=== PATIENT | male | born 1970 | race Caucasian/White ===

== ENCOUNTER 2019-02-23 18:18 | Inpatient (IN) | payer OTHER ==
[2019-02-23] MEDS ORDERED: SODIUM CHLORIDE 0.9% 1,000 ML IV STA (18:58)
[2019-02-23] MEDS ORDERED: ONDANSETRON 4 MG/2 ML VIAL IVP STA (18:58)
[2019-02-23] MEDS ORDERED: DILTIAZEM DRIP BOLUS FROM BAG 1 MG SOLN IV ONE (19:13)
[2019-02-23] MEDS ORDERED: DILTIAZEM 125 MG in SODIUM CHLORIDE 0.9% 100 ML IV SCH (19:15)
--- NOTE | 2019-02-23 19:16 | ED ---
Dizziness HPI - General Chief Complaint: Dizziness Stated Complaint: dizziness/weakness/poss low BP Time Seen by Provider: 02/23/19 18:27 Source: patient, RN notes reviewed, old records reviewed Mode of arrival: wheelchair Limitations: no limitations - History of Present Illness Initial Comments: This is a 48-year-old male the ER for evaluation presents today for evaluation regards to not feeling well. Patient's was feeling fine all day and became very lightheaded dizzy and she is evaluating. No recent medication changes. Patient has history of heart failure. States he feels like his heart is racing right now currently. Denies history of H of fibrillation. No current chest pain is feeling weak lightheaded and shortness of breath. No fevers no significant sick contacts MD Complaint: dizziness, lightheadedness, other (Nausea and vomiting) -: hour(s) Timing: sudden onset Description: lightheadedness, nausea, near-syncope History of Same: Yes History of Trauma: No Severity: moderate Improves With: nothing Worsens With: movement Associated Symptoms: diaphoresis, loss of appetite, weakness - Related Data Home Medications Medication Instructions Recorded Confirmed Aspirin EC [Ecotrin Low Dose] 81 mg PO DAILY 02/23/19 02/23/19 Atorvastatin [Lipitor] 40 mg PO HS 02/23/19 02/23/19 Digoxin [Lanoxin] 125 mcg PO DAILY 02/23/19 02/23/19 Lisinopril [Zestril] 2.5 mg PO DAILY 02/23/19 02/23/19 Metoprolol Succinate (ER) [Toprol 25 mg PO DAILY 02/23/19 02/23/19 Xl] Multivitamins, Thera [Multivitamin 1 tab PO DAILY 02/23/19 02/23/19 (formulary)] Spironolactone [Aldactone] 12.5 mg PO DAILY 02/23/19 02/23/19 Allergies Allergy/AdvReac Type Severity Reaction Status Date / Time No Known Allergies Allergy Verified 02/23/19 19:02 Review of Systems ROS Statement: Those systems with pertinent positive or pertinent negative responses have been documented in the HPI. ROS Other: All systems not noted in ROS Statement are negative. Past Medical History Additional Past Medical History / Comment(s): chf History of Any Multi-Drug Resistant Organisms: None Reported Past Surgical History: No Surgical Hx Reported Past Psychological History: No Psychological Hx Reported Smoking Status: Never smoker Past Alcohol Use History: Daily Past Drug Use History: None Reported General Exam Limitations: no limitations General appearance: alert, in no apparent distress Head exam: Present: atraumatic, normocephalic, normal inspection Eye exam: Present: normal appearance, EOMI. Absent: scleral icterus, conjunctival injection, periorbital swelling ENT exam: Present: normal exam, mucous membranes moist Neck exam: Present: normal inspection. Absent: tenderness, meningismus, lymphadenopathy Respiratory exam: Present: normal lung sounds bilaterally. Absent: respiratory distress, wheezes, rales, rhonchi, stridor Cardiovascular Exam: Present: normal rhythm, tachycardia, irregular rhythm, normal heart sounds. Absent: systolic murmur, diastolic murmur, rubs, gallop, clicks GI/Abdominal exam: Present: soft, normal bowel sounds. Absent: distended, tenderness, guarding, rebound, rigid Extremities exam: Present: normal inspection, full ROM, normal capillary refill. Absent: tenderness, pedal edema, joint swelling, calf tenderness Back exam: Present: normal inspection Neurological exam: Present: alert, oriented X3, CN II-XII intact Psychiatric exam: Present: normal affect, normal mood Skin exam: Present: warm, dry, intact, normal color. Absent: rash Course Vital Signs 02/23/19 02/23/19 02/23/19 18:23 20:00 20:14 Temperature 98.1 F Pulse Rate 97 140 H 110 H Respiratory 18 18 18 Rate Blood Pressure 151/99 145/81 108/73 O2 Sat by Pulse 99 96 97 Oximetry 02/23/19 02/23/19 02/23/19 20:20 20:30 20:40 Temperature Pulse Rate 124 H 111 H 95 Respiratory 18 18 18 Rate Blood Pressure 126/70 92/64 105/72 O2 Sat by Pulse 97 98 98 Oximetry - Reevaluation(s) Reevaluation #1: 02/23/19 19:15 Medical records were requested from [facility] Reevaluation #2: 02/23/19 20:56 Patient remains in A. fib with RVR low rate is improving Reevaluation #3: 02/23/19 20:56 Record and transfer. Labwork are reviewed, no history of A. fib - Consultations Consultation #1: Spoke with Dr. Chung regarding admission he is agreeable EKG Findings - EKG Comments: EKG Findings:: EKG shows atrial fibrillation with rapid ventricular rate of 124, QRS 96, QTc 494 Medical Decision Making - Medical Decision Making 48 male the ER for evaluation of weakness nausea and not feeling well the diagnosis of atrial fibrillation with RVR we'll admit for rate control and anticoagulation - Lab Data Result diagrams: 02/23/19 18:37 02/23/19 18:37 Lab Results 02/23/19 02/23/19 02/23/19 Range/Units 18:37 18:37 18:37 WBC 14.7 H (3.8-10.6) k/uL RBC 5.05 (4.30-5.90) m/uL Hgb 15.7 (13.0-17.5) gm/dL Hct 45.9 (39.0-53.0) % MCV 91.0 (80.0-100.0) fL MCH 31.1 (25.0-35.0) pg MCHC 34.2 (31.0-37.0) g/dL RDW 14.8 (11.5-15.5) % Plt Count 287 (150-450) k/uL Neutrophils % (Manual) 48 % Lymphocytes % (Manual) 41 % Monocytes % (Manual) 6 % Eosinophils % (Manual) 5 % Neutrophils # (Manual) 7.06 (1.3-7.7) k/uL Lymphocytes # (Manual) 6.03 H (1.0-4.8) k/uL Monocytes # (Manual) 0.88 (0-1.0) k/uL Eosinophils # (Manual) 0.74 H (0-0.7) k/uL Nucleated RBCs 0 (0-0) /100 WBC Manual Slide Review Performed RBC Morphology Normal PT (9.0-12.0) sec INR (<1.2) APTT (22.0-30.0) sec Sodium 141 (137-145) mmol/L Potassium 4.3 (3.5-5.1) mmol/L Chloride 105 (98-107) mmol/L Carbon Dioxide 22 (22-30) mmol/L Anion Gap 14 mmol/L BUN 26 H (9-20) mg/dL Creatinine 0.97 (0.66-1.25) mg/dL Est GFR (CKD-EPI)AfAm >90 (>60 ml/min/1.73 sqM) Est GFR (CKD-EPI)NonAf >90 (>60 ml/min/1.73 sqM) Glucose 139 H (74-99) mg/dL Plasma Lactic Acid Armani 4.4 H* (0.7-2.0) mmol/L Calcium 10.0 (8.4-10.2) mg/dL Phosphorus 4.0 (2.5-4.5) mg/dL Magnesium 2.0 (1.6-2.3) mg/dL Total Bilirubin 0.5 (0.2-1.3) mg/dL AST 34 (17-59) U/L ALT 70 (21-72) U/L Alkaline Phosphatase 64 (38-126) U/L Troponin I (0.000-0.034) ng/mL NT-Pro-B Natriuret Pep pg/mL Total Protein 7.9 (6.3-8.2) g/dL Albumin 4.7 (3.5-5.0) g/dL 02/23/19 02/23/19 02/23/19 Range/Units 18:37 18:37 18:37 WBC (3.8-10.6) k/uL RBC (4.30-5.90) m/uL Hgb (13.0-17.5) gm/dL Hct (39.0-53.0) % MCV (80.0-100.0) fL MCH (25.0-35.0) pg MCHC (31.0-37.0) g/dL RDW (11.5-15.5) % Plt Count (150-450) k/uL Neutrophils % (Manual) % Lymphocytes % (Manual) % Monocytes % (Manual) % Eosinophils % (Manual) % Neutrophils # (Manual) (1.3-7.7) k/uL Lymphocytes # (Manual) (1.0-4.8) k/uL Monocytes # (Manual) (0-1.0) k/uL Eosinophils # (Manual) (0-0.7) k/uL Nucleated RBCs (0-0) /100 WBC Manual Slide Review RBC Morphology PT 9.5 (9.0-12.0) sec INR 0.9 (<1.2) APTT 23.6 (22.0-30.0) sec Sodium (137-145) mmol/L Potassium (3.5-5.1) mmol/L Chloride (98-107) mmol/L Carbon Dioxide (22-30) mmol/L Anion Gap mmol/L BUN (9-20) mg/dL Creatinine (0.66-1.25) mg/dL Est GFR (CKD-EPI)AfAm (>60 ml/min/1.73 sqM) Est GFR (CKD-EPI)NonAf (>60 ml/min/1.73 sqM) Glucose (74-99) mg/dL Plasma Lactic Acid Armani (0.7-2.0) mmol/L Calcium (8.4-10.2) mg/dL Phosphorus (2.5-4.5) mg/dL Magnesium (1.6-2.3) mg/dL Total Bilirubin (0.2-1.3) mg/dL AST (17-59) U/L ALT (21-72) U/L Alkaline Phosphatase (38-126) U/L Troponin I <0.012 (0.000-0.034) ng/mL NT-Pro-B Natriuret Pep 373 pg/mL Total Protein (6.3-8.2) g/dL Albumin (3.5-5.0) g/dL Critical Care Time Critical Care Time: Yes Disposition Clinical Impression: Atrial fibrillation with RVR Disposition: ADMITTED IP TO THIS HOSP Condition: Fair Is patient prescribed a controlled substance at d/c from ED?: No Referrals: Stephen Flores MD [Primary Care Provider] - 1-2 days
[2019-02-23 19:20] LABS: HCT 45.9 % (39.0-53.0); HGB 15.7 gm/dL (13.0-17.5); MCH 31.1 pg (25.0-35.0); MCHC 34.2 g/dL (31.0-37.0); Mean Platelet Volume 7.3; Platelet Count 287 k/uL (150-450); RBC 5.05 m/uL (4.30-5.90); RDW 14.8 % (11.5-15.5); WBC 14.7 k/uL (3.8-10.6)
[2019-02-23 19:30] LABS: ALT 70 U/L (21-72); AST 34 U/L (17-59); African American GFR (CKD) >90 (>60 ml/min/1.73 sqM); Albumin 4.7 g/dL (3.5-5.0); Alkaline Phosphatase 64 U/L (38-126); Anion Gap 14 mmol/L; Blood Urea Nitrogen 26 mg/dL (9-20); Carbon Dioxide 22 mmol/L (22-30); Chloride 105 mmol/L (98-107); Glucose 139 mg/dL (74-99); Potassium 4.3 mmol/L (3.5-5.1); Sodium 141 mmol/L (137-145); Total Bilirubin 0.5 mg/dL (0.2-1.3); Total Protein 7.9 g/dL (6.3-8.2)
[2019-02-23 19:40] LABS: INR 0.9 (<1.2); Partial Thromboplastin Time 23.6 sec (22.0-30.0); Prothrombin Time 9.5 sec (9.0-12.0)
--- NOTE | 2019-02-23 19:44 | XR ---
EXAMINATION TYPE: XR chest 2V DATE OF EXAM: 02/23/2019 COMPARISON: NONE HISTORY: Weakness and dizziness, hypotension. TECHNIQUE: Frontal and lateral views of the chest are obtained. FINDINGS: There is no focal air space opacity, pleural effusion, or pneumothorax seen. The cardiac silhouette size is enlarged. Overlying EKG leads are present. The osseous structures are intact. IMPRESSION: Cardiomegaly without acute pulmonary process.
[2019-02-23 19:53] LABS: Eosinophils # (M) 0.74 k/uL (0-0.7); Lymphocytes # (M) 6.03 k/uL (1.0-4.8); Monocytes # (M) 0.88 k/uL (0-1.0); Neutrophils % (M) 48 %; Nucleated Red Blood Cells 0 /100 WBC (0-0); Total Cells Counted 100
[2019-02-23] MEDS ORDERED: NITROGLYCERIN SL TABS 0.4 MG TAB SUBLINGUAL PRN (20:55)
[2019-02-23] MEDS ORDERED: HEPARIN SODIUM,PORCINE 5,000 UNIT/ML 1 ML VIAL IV PRN (20:55)
[2019-02-23] MEDS ORDERED: HEPARIN SODIUM,PORCINE 5,000 UNIT/ML 1 ML VIAL IV ONE (20:55)
[2019-02-23] MEDS ORDERED: HEPARIN SOD,PORK IN 0.45% NACL 25,000 UNIT in 0.45% NACL 1 250ML.BAG IV SCH (21:00)
[2019-02-23 23:21] VITALS: BMI 25.1
[2019-02-23] MEDS ORDERED: ATORVASTATIN 40 MG TAB PO SCH (23:30)
[2019-02-23] MEDS ORDERED: ACETAMINOPHEN TAB 325 MG TAB PO PRN (23:34)
[2019-02-23] MEDS: ONDANSETRON 4 MG/2 ML VIAL IVP PRN (23:41)
[2019-02-23] MEDS: METOPROLOL TARTRATE 25 MG TAB PO SCH (23:41)
[2019-02-23] MEDS: SODIUM CHLORIDE 0.9% 1,000 ML IV SCH (23:42)
[2019-02-24 03:41] LABS: Appearance,Urine Clear (Clear); Bilirubin,Urine Negative (Negative); Blood,Urine Negative (Negative); Color,Urine Yellow; Glucose,Urine (UA) Negative (Negative); Ketones,Urine Negative (Negative); Leukocyte Esterase,Urine Negative (Negative); Nitrite,Urine Negative (Negative); Protein,Urine Negative (Negative); Specific Gravity,Urine 1.015 (1.001-1.035); Urobilinogen,Urine <2.0 mg/dL (<2.0)
[2019-02-24 06:36] LABS: ALT 57 U/L (21-72); AST 26 U/L (17-59); African American GFR (CKD) >90 (>60 ml/min/1.73 sqM); Albumin 3.5 g/dL (3.5-5.0); Alkaline Phosphatase 55 U/L (38-126); Anion Gap 4 mmol/L; Blood Urea Nitrogen 20 mg/dL (9-20); Calcium 8.8 mg/dL (8.4-10.2); Carbon Dioxide 30 mmol/L (22-30); Chloride 106 mmol/L (98-107); Cholesterol 220 mg/dL (<200); Glucose 116 mg/dL (74-99); HDL Cholesterol 33 mg/dL (40-60); LDL Cholesterol,Calculated 109 mg/dL (0-99); Magnesium 2.1 mg/dL (1.6-2.3); Potassium 3.8 mmol/L (3.5-5.1); Sodium 140 mmol/L (137-145); Total Bilirubin 0.6 mg/dL (0.2-1.3); Total Protein 6.1 g/dL (6.3-8.2); Triglycerides 390 mg/dL (<150)
[2019-02-24 06:41] LABS: Basophils % (A) 1 %; Eosinophils # (A) 0.2 k/uL (0-0.7); Eosinophils % (A) 3 %; Lymphocytes # (A) 2.1 k/uL (1.0-4.8); Lymphocytes % (A) 26 %; MCH 31.1 pg (25.0-35.0); MCHC 34.2 g/dL (31.0-37.0); Mean Platelet Volume 7.2; Monocytes # (A) 0.5 k/uL (0-1.0); Monocytes % (A) 6 %; Neutrophils # (A) 4.9 k/uL (1.3-7.7); Neutrophils % (A) 63 %; Platelet Count 206 k/uL (150-450); RDW 14.4 % (11.5-15.5); WBC 7.8 k/uL (3.8-10.6)
[2019-02-24] MEDS: SODIUM CHLORIDE 0.9% 1,000 ML IV SCH (08:48)
[2019-02-24] MEDS: METOPROLOL TARTRATE 25 MG TAB PO SCH (08:50)
[2019-02-24] MEDS: ONDANSETRON 4 MG/2 ML VIAL IVP PRN (08:52)
[2019-02-24] MEDS ORDERED: MULTIVITAMINS, THERA 1 EACH TAB PO SCH (09:00)
[2019-02-24] MEDS ORDERED: DIGOXIN 125 MCG TAB PO SCH (09:00)
[2019-02-24] MEDS ORDERED: SPIRONOLACTONE 25 MG TAB PO SCH (09:00)
[2019-02-24] MEDS ORDERED: LISINOPRIL 2.5 MG TAB PO SCH (09:00)
[2019-02-24] MEDS ORDERED: ASPIRIN 325 MG TAB PO SCH (09:00)
[2019-02-24] MEDS ORDERED: APIXABAN 5 MG TAB PO SCH ×2 (09:45→21:00)
[2019-02-24 09:48] VITALS: RESP 20; TEMP 98.4
[2019-02-24] MEDS ORDERED: METOPROLOL TARTRATE 25 MG TAB PO STA (09:52)
--- NOTE | 2019-02-24 10:47 | CONS ---
CONSULTATION Mr. Gallegos is a 48-year-old gentleman who is seen for cardiac evaluation. This patient gives a history that he was not feeling well yesterday. He was feeling fine all day. Then while he was driving he felt dizzy and nauseated. He did not have any chest pain or palpitations. When patient came to the emergency room, he was in atrial fibrillation with moderately rapid ventricular response. This patient gives a history that he does have a history of cardiomyopathy. He was diagnosed with congestive heart failure about 2 years ago. The patient was evaluated at [facility] and he underwent cardiac catheterization and he was told that no significant coronary artery disease was detected and the patient was told that he had probably viral myocarditis. He has been treated with medications. He is currently being followed by concrete stone fabricator at [facility]. The patient otherwise has been doing fairly well. He denies any exertional shortness of breath, orthopnea or PND. He Is moderately active physically. The patient was advised AICD in the past. However, he declined it. MEDICATIONS: Patient's home medications include aspirin, Lipitor 40 mg daily, Lanoxin once a day, Zestril 2.5 mg daily, metoprolol succinate 25 mg daily, Aldactone 12.5 mg daily. PAST MEDICAL HISTORY: No history of any surgeries. PHYSICAL EXAMINATION: Physical examination at present reveals a 48-year-old gentleman who does not appear to be in any acute distress. Patient's blood pressure is 133/83 mmHg, heart rate is 90 per minute. Head, ENT examination is negative. Neck is supple. There is no increase in jugular venous pressure. Both the carotid pulses are felt. There is no bruit. Chest is symmetrical HEART: The PMI is not felt. First and second heart sounds are normal. There is no evidence of any murmur. Lungs are clinically clear to auscultation and percussion. Abdomen is soft. Liver and spleen are not enlarged. EXTREMITIES: Peripheral pulsations are 2+. Initial EKG showed evidence of atrial fibrillation with a controlled rate. The patient has a white count is 14,000. Patient's electrolytes are normal. Patient's initial lactic acid was 4.2. Repeat lactic acid was 2.7. The troponins are normal. EKG post conversion shows normal sinus rhythm without any acute ischemic changes. Patient's triglycerides were elevated. LDL level is 109 pounds, HDL level is low. FINAL IMPRESSION: 1. This patient presented with paroxysmal atrial fibrillation. The patient converted to the normal sinus rhythm. 2. Patient has a history of cardiomyopathy. At present, there is no evidence of any overt heart failure. Patient's proBNP level is 373. PLAN: We will discontinue the Cardizem. Patient's metoprolol is increased. The patient will be started on Eliquis 5 mg b.i.d. The risks and benefits of anticoagulation were discussed with the patient. We will repeat the echocardiogram. MMODL / IJN: [id number] /
--- NOTE | 2019-02-24 11:56 | ECHOF ---
Referral Reason:history of heart failure MEASUREMENTS -------- HEIGHT: 175.3 cm WEIGHT: 77.1 kg BP: 133/83 RVIDd: 3.4 cm (< 3.3) IVSd: 1.5 cm (0.6 - 1.1) LVIDd: 4.9 cm (3.9 - 5.3) LVPWd: 1.5 cm (0.6 - 1.1) IVSs: 1.7 cm LVIDs: 4.0 cm LVPWs: 1.7 cm LA Diam: 3.8 cm (2.7 - 3.8) LAESV Index (A-L): 20.75 ml/m Ao Diam: 3.4 cm (2.0 - 3.7) AV Cusp: 2.2 cm (1.5 - 2.6) MV EXCURSION: 23.102 mm (> 18.000) MV EF SLOPE: 124 mm/s (70 - 150) EPSS: 1.3 cm MV E Aaron: 0.73 m/s MV DecT: 216 ms MV A Aaron: 0.82 m/s MV E/A Ratio: 0.88 RAP: 5.00 mmHg RVSP: 20.73 mmHg FINDINGS -------- Sinus rhythm. This was a technically adequate study. The left ventricular size is normal. There is moderate concentric left ventricular hypertrophy. O verall left ventricular systolic function is severely impaired with, an EF between 25 - 30 %. The right ventricle is mildly enlarged. Normal LA size by volume 22+/-6 ml/m2. The right atrium is normal in size. Interatrial and interventricular septum intact. The aortic valve is trileaflet and appears structurally normal. The mitral valve is normal. The tricuspid valve appears structurally normal. There is no pulmonic regurgitation present. The aortic root size is normal. Normal inferior vena cava with normal inspiratory collapse consistent with estimated right atrial pre ssure of 5 mmHg. There is no pericardial effusion. CONCLUSIONS -------- 1. Sinus rhythm. 2. This was a technically adequate study. 3. The left ventricular size is normal. 4. There is moderate concentric left ventricular hypertrophy. 5. Overall left ventricular systolic function is severely impaired with, an EF between 25 - 30 %. 6. The right ventricle is mildly enlarged. 7. Normal LA size by volume 22+/-6 ml/m2. 8. The right atrium is normal in size. 9. Interatrial and interventricular septum intact. 10. The aortic valve is trileaflet and appears structurally normal. 11. The mitral valve is normal. 12. The tricuspid valve appears structurally normal. 13. There is no pulmonic regurgitation present. 14. The aortic root size is normal. 15. Normal inferior vena cava with normal inspiratory collapse consistent with estimated right atrial pressure of 5 mmHg. 16. There is no pericardial effusion. BORDER PATROL OFFICER: Felicia Villanueva RDCS
--- NOTE | 2019-02-24 13:14 | P.HPIM ---
History of Present Illness 48-year-old pleasant male came in with compensative dizziness found to be in atrial fibrillation. Patient does have history of nonischemic cardiomyopathy does have a LifeVest which he doesn't want to wear in spite of knowing all the risk of not wearing it. Patient was with cardiology in the [place] area which she'll follow up as an outpatient. Patient was started on Cardizem converted to sinus rhythm this Cardizem was started when the ER physician is not aware of his EF. Patient is presently on metoprolol long-acting the dose of which is being increased to twice and the lisinopril dose is also being increased to 5 mg kathryn use of his nonischemic myopathy. Patient is not in heart failure exacerbation patient is euvolemic is not requiring any diuretic therapy at this time. Patient is also on Aldactone which will be continued. Patient the is euvolemic improved the dizziness is cleared for discharge patient was started on Eliquis and patient will be discharged today. Review of Systems REVIEW OF SYSTEMS: CONSTITUTIONAL: No fever, no malaise, no fatigue. HEENT: No recent visual problems or hearing problems. Denied any sore throat. CARDIOVASCULAR: No chest pain, orthopnea, PND, no palpitations, no syncope. PULMONARY: No shortness of breath, no cough, no hemoptysis. GASTROINTESTINAL: No diarrhea, no nausea, no vomiting, no abdominal pain. NEUROLOGICAL: No headaches, no weakness, no numbness. HEMATOLOGICAL: Denies any bleeding or petechiae. GENITOURINARY: Denies any burning micturition, frequency, or urgency. MUSCULOSKELETAL/RHEUMATOLOGICAL: Denies any joint pain, swelling, or any muscle pain. ENDOCRINE: Denies any polyuria or polydipsia. The rest of the 14-point review of systems is negative. Past Medical History Past Medical History: Heart Failure Additional Past Medical History / Comment(s): pt reported EF 25%, shingles 2018 History of Any Multi-Drug Resistant Organisms: None Reported Past Surgical History: No Surgical Hx Reported Past Anesthesia/Blood Transfusion Reactions: No Reported Reaction Past Psychological History: No Psychological Hx Reported Smoking Status: Never smoker Past Alcohol Use History: Daily Past Drug Use History: None Reported - Past Family History Father Family Medical History: Coronary Artery Disease (CAD), Myocardial Infarction ([place] ) Additional Family Medical History / Comment(s): pt stated father had an [place] Mother Family Medical History: No Reported History Medications and Allergies Home Medications Medication Instructions Recorded Confirmed Type Atorvastatin [Lipitor] 40 mg PO HS 02/23/19 02/23/19 History Digoxin [Lanoxin] 125 mcg PO DAILY 02/23/19 02/23/19 History Multivitamins, Thera [Multivitamin 1 tab PO DAILY 02/23/19 02/23/19 History (formulary)] Spironolactone [Aldactone] 12.5 mg PO DAILY 02/23/19 02/23/19 History Apixaban [Eliquis] 5 mg PO BID #60 tab 02/24/19 Rx Lisinopril [Zestril] 5 mg PO DAILY #60 tab 02/24/19 Rx Metoprolol Succinate (ER) [Toprol 50 mg PO DAILY #30 tab.er.24h 02/24/19 Rx XL] Allergies Allergy/AdvReac Type Severity Reaction Status Date / Time No Known Allergies Allergy Verified 02/23/19 19:02 Physical Exam Vitals: Vital Signs Temp Pulse Pulse Resp BP BP Pulse Ox 02/24/19 08:00 98.4 F 94 20 133/83 97 02/24/19 07:45 98.2 F 94 12 133/83 97 02/24/19 04:00 97.1 F L 86 17 119/68 96 02/24/19 00:00 98.4 F 93 15 117/67 96 02/23/19 21:46 98.4 F 90 15 125/56 96 02/23/19 21:42 98.0 F 96 18 109/76 97 02/23/19 21:15 108 H 18 105/71 97 02/23/19 20:40 95 18 105/72 98 02/23/19 20:30 111 H 18 92/64 98 02/23/19 20:20 124 H 18 126/70 97 02/23/19 20:14 110 H 18 108/73 97 02/23/19 20:00 140 H 18 145/81 96 02/23/19 18:23 98.1 F 97 18 151/99 99 Intake and Output 02/23/19 02/24/19 02/24/19 22:59 06:59 14:59 Intake Total 1010 41.098 472 Output Total 200 600 Balance 1010 -158.902 -128 Intake: IV 10 20 10 Invasive Line 1 20 10 Sodium Chloride 0.9% 1, 10 000 ml @ 100 mls/hr IV . Q10H AZIZA Rx#:[id number] Intake, IV Titration 1000 21.098 Amount Heparin Sod,Pork in 0.45% 21.098 NaCl 25,000 unit In 0.45 % NaCl 1 250ml.bag @ 12 UNITS/KG/HR 9.308 mls/hr IV .Q24H AZIZA Rx#: [id number] Sodium Chloride 0.9% 1, 1000 000 ml @ 999 mls/hr IV . Q1H1M STA Rx#:[id number] Oral 462 Output: Urine 200 600 Other: Voiding Method Toilet Toilet # Voids 1 Weight 77.564 kg 77.3 kg PHYSICAL EXAMINATION: GENERAL: The patient is alert and oriented x3, not in any acute distress. Well developed, well nourished. HEENT: Pupils are round and equally reacting to light. EOMI. No scleral icterus. No conjunctival pallor. Normocephalic, atraumatic. No pharyngeal erythema. No t hyromegaly. CARDIOVASCULAR: S1 and S2 present. No murmurs, rubs, or gallops. PULMONARY: Chest is clear to auscultation, no wheezing or crackles. ABDOMEN: Soft, nontender, nondistended, normoactive bowel sounds. No palpable organomegaly. MUSCULOSKELETAL: No joint swelling or deformity. EXTREMITIES: No cyanosis, clubbing, or pedal edema. NEUROLOGICAL: Gross neurological examination did not reveal any focal deficits. SKIN: No rashes. Results CBC & Chem 7: 02/24/19 05:50 02/24/19 05:50 Labs: Abnormal Lab Results - Last 24 Hours (Table) 02/23/19 02/23/19 02/23/19 Range/Units 18:37 18:37 18:37 WBC 14.7 H (3.8-10.6) k/uL Lymphocytes # (Manual) 6.03 H (1.0-4.8) k/uL Eosinophils # (Manual) 0.74 H (0-0.7) k/uL APTT (22.0-30.0) sec BUN 26 H (9-20) mg/dL Glucose 139 H (74-99) mg/dL Plasma Lactic Acid Armani 4.4 H* (0.7-2.0) mmol/L Total Protein (6.3-8.2) g/dL Triglycerides (<150) mg/dL Cholesterol (<200) mg/dL LDL Cholesterol, Calc (0-99) mg/dL HDL Cholesterol (40-60) mg/dL 02/23/19 02/23/19 02/24/19 Range/Units 23:35 23:35 05:50 WBC (3.8-10.6) k/uL Lymphocytes # (Manual) (1.0-4.8) k/uL Eosinophils # (Manual) (0-0.7) k/uL APTT 35.0 H (22.0-30.0) sec BUN (9-20) mg/dL Glucose 116 H (74-99) mg/dL Plasma Lactic Acid Armani 2.7 H* (0.7-2.0) mmol/L Total Protein 6.1 L (6.3-8.2) g/dL Triglycerides 390 H (<150) mg/dL Cholesterol 220 H (<200) mg/dL LDL Cholesterol, Calc 109 H (0-99) mg/dL HDL Cholesterol 33 L (40-60) mg/dL Thrombosis Risk Factor Assmnt - Choose All That Apply Any of the Below Risk Factors Present?: Yes Each Factor Represents 1 point: Age 41-60 years, Obesity (BMI >25) Other Risk Factors: No Other congenital or acquired thrombophilia - If yes, enter type in comment: No Thrombosis Risk Factor Assessment Total Risk Factor Score: 2 Thrombosis Risk Factor Assessment Level: Low Risk Assessment and Plan Plan: -Atrial fibrillation with rapid and regular rate contributing to his dizziness, converted to sinus rhythm. Patient is euvolemic. Patient will be discharged today dizziness improved. Patient has proximal A. 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 -Hyperlipidemia
--- NOTE | 2019-02-24 13:15 | P.DS ---
Providers Date of admission: 02/23/19 20:56 Attending physician: Linda Chung Consults: 02/23/19 20:55 Consult Physician Urgent Consulting Provider: Ernestine Medina Consult Reason/Comments: afib Do you want consulting provider notified?: Yes Primary care physician: Stephen Flores MD Hospital Course: Please refer to my HPI Patient Condition at Discharge: Fair Plan - Discharge Summary Discharge Rx Participant: No New Discharge Prescriptions: New Apixaban [Eliquis] 5 mg PO BID #60 tab Metoprolol Succinate (ER) [Toprol XL] 50 mg PO DAILY #30 tab.er.24h Continue Spironolactone [Aldactone] 12.5 mg PO DAILY Multivitamins, Thera [Multivitamin (formulary)] 1 tab PO DAILY Atorvastatin [Lipitor] 40 mg PO HS Digoxin [Lanoxin] 125 mcg PO DAILY Changed Lisinopril [Zestril] 5 mg PO DAILY #60 tab Discontinued Aspirin EC [Ecotrin Low Dose] 81 mg PO DAILY Metoprolol Succinate (ER) [Toprol Xl] 25 mg PO DAILY Discharge Medication List Atorvastatin [Lipitor] 40 mg PO HS 02/23/19 [History] Digoxin [Lanoxin] 125 mcg PO DAILY 02/23/19 [History] Multivitamins, Thera [Multivitamin (formulary)] 1 tab PO DAILY 02/23/19 [History] Spironolactone [Aldactone] 12.5 mg PO DAILY 02/23/19 [History] Apixaban [Eliquis] 5 mg PO BID #60 tab 02/24/19 [Rx] Lisinopril [Zestril] 5 mg PO DAILY #60 tab 02/24/19 [Rx] Metoprolol Succinate (ER) [Toprol XL] 50 mg PO DAILY #30 tab.er.24h 02/24/19 [Rx] Follow up Appointment(s)/Referral(s): cardiology, [Other] - 1 Week (please follow up with your family day care provider) Stephen Flores MD [Primary Care Provider] - 02/26/19 2:00 pm () Patient Instructions/Handouts: A-fib (Atrial Fibrillation) (DC), Safe Use of Anticoagulants (DC) Discharge Disposition: HOME SELF-CARE Care Plan Goals (MU): free month of eliquis with coupon and $10 a month following. Coupons given
[2019-02-24] MEDS ORDERED: MECLIZINE 25 MG TAB PO STA (13:36)
[2019-02-24 13:40] VITALS: BP 143/91; PULSE 82
[2019-02-24] MEDS ORDERED: METOPROLOL TARTRATE 25 MG TAB PO SCH (21:00)
[2019-02-25] MEDS ORDERED: LISINOPRIL 2.5 MG TAB PO SCH (09:00)
[2019-02-25] MEDS ORDERED: LISINOPRIL 5 MG TAB PO SCH (09:00)
[2019-02-25] MEDS ORDERED: METOPROLOL SUCCINATE (ER) 50 MG TAB.ER.24H PO SCH (09:00)
== END 2019-02-24 15:52 | disposition home or self-care (01) | DRG 309 ==
LOC: EC 18:18 → 3SCARD 20:56
PROVIDERS: ADMIT Hospitalist; ATTEND Hospitalist
DX: I48.0 Paroxysmal atrial fibrillation (principal); I50.22 Chronic systolic (congestive) heart failure; I25.5 Ischemic cardiomyopathy; E78.5 Hyperlipidemia, unspecified; Z79.01 Long term (current) use of anticoagulants; Z79.82 Long term (current) use of aspirin; Z79.899 Other long term (current) drug therapy; Z82.49 Family history of ischemic heart disease and other diseases of the circulatory system
CPT/HCPCS: 36415; 71046; 80053; 80061; 80162; 81003; 83605; 83735; 83880; 84100; 84484; 85025; 85610; 85730; 93005; 93306; 96361; 96365; 96366; 96368; 96375; 96376; 99285